=== PATIENT | male | born 1985 | race Caucasian/White ===

== ENCOUNTER 2018-06-17 19:12 | Emergency (ER) | payer BC ==
--- NOTE | 2018-06-17 19:31 | EDM.PDOC ---
ED HPI GENERAL MEDICAL PROBLEM - General Chief Complaint: Back Pain or Injury Stated Complaint: PT HAS BACK PAIN Time Seen by Provider: 06/17/18 19:31 Source of Information: Reports: Patient History Limitations: Reports: No Limitations - History of Present Illness INITIAL COMMENTS - FREE TEXT/NARRATIVE: HISTORY AND PHYSICAL: History of present illness: Patient is a 32-year-old male here with complaint of mid back pain started about 1 week ago. He states it's been progressively getting worse which contact him to come to the ED today. He denies any specific injury. 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 He denies any pain, numbness, tingling to the upper or lower extremities. Denies saddle anesthesia, extremity weakness, loss of bowel or bladder control, fever and chills. He is taking 800 mg ibuprofen without relief of symptoms. Review of systems: As per history of present illness and below otherwise all systems reviewed and negative. Past medical history: As per history of present illness and as reviewed below otherwise noncontributory. Surgical history: As per history of present illness and as reviewed below otherwise noncontributory. Social history: No reported history of drug or alcohol abuse. Family history: As per history of present illness and as reviewed below otherwise noncontributory. Physical exam: General: Patient sitting comfortably in no acute distress and nontoxic appearing HEENT: Atraumatic, normocephalic, pupils reactive, negative for conjunctival pallor or scleral icterus, mucous membranes moist, throat clear, neck supple, nontender, trachea midline. No meningeal signs. Lungs: Clear to auscultation, breath sounds equal bilaterally, chest nontender. Heart: S1S2, regular, negative for clicks, rubs, or overt murmur. Abdomen: Soft, nondistended, nontender. Negative for masses or hepatosplenomegaly. Negative for costovertebral tenderness. Pelvis: Stable nontender. Genitourinary: Deferred. Rectal: Deferred. Spine: No vertebral tenderness or step offs to palpation. Thoracic lumbar paraspinal tenderness to palpation bilaterally. Extremities: Atraumatic, negative for cords or calf pain. Neurovascular unremarkable. Neuro: Awake, alert, oriented. Cranial nerves II through XII unremarkable. Cerebellum unremarkable. Motor and sensory unremarkable throughout. Exam nonfocal. Notes: Diagnostics: Patient declined imaging Therapeutics: 60mg Toradol IM 60mg Norflex IM Prescriptions: Flexeril 10mg Tramadol 50mg Impression: Thoracic back pain Plan: 1. Heat or ice and motrin as instructed. You may take tramadol and flexeril as needed as discussed, do not take while driving as they may make you drowsy 2. Follow up with primary care provider, please call number provided to schedule an appointment 3. Return to ED as needed as discussed Definitive disposition and diagnosis as appropriate pending reevaluation and review of above. 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 Middle back Pain Score (Numeric/FACES): 10 - Related Data Allergies Allergy/AdvReac Type Severity Reaction Status Date / Time cefaclor [From Ceclor] Allergy Cannot Verified 06/17/18 19:22 Remember Penicillins Allergy Cannot Verified 06/17/18 19:22 Remember Home Meds: Home Meds Citalopram [Citalopram HBr] 1 tab PO DAILY 06/17/18 [History] Past Medical History Psychiatric History: Reports: PTSD Social & Family History - Family History Family Medical History: Noncontributory - Tobacco Use Smoking Status *Q: Never Smoker - Recreational Drug Use Recreational Drug Use: No ED ROS GENERAL - Review of Systems Review Of Systems: ROS reveals no pertinent complaints other than HPI. ED EXAM, UPPER BACK/NECK PAIN - Physical Exam Exam: See Below (see dictation) Course - Vital Signs Last Recorded V/S: Last Vital Signs Temp 97.6 F 06/17/18 19:12 Pulse 63 06/17/18 19:12 Resp 16 06/17/18 19:12 BP 121/52 L 06/17/18 19:12 Pulse Ox 96 06/17/18 19:12 - Orders/Labs/Meds Meds: Medications Discontinued Medications Generic Name Dose Route Start Last Admin Trade Name Freq PRN Reason Stop Dose Admin Ketorolac Tromethamine 60 mg 06/17/18 19:37 06/17/18 19:45 Toradol IM 06/17/18 19:38 60 mg ONETIME ONE Administration Orphenadrine Citrate 60 mg 06/17/18 19:37 06/17/18 19:44 Norflex IM 06/17/18 19:38 60 mg NOW STA Administration Departure - Departure Time of Disposition: 19:56 Disposition: Home, Self-Care 01 Condition: Good Clinical Impression: Thoracic back pain - Discharge Information Referrals: PCP,None [Primary Care Provider] - Forms: ED Department Discharge Additional Instructions: The following information is given to patients seen in the emergency department who are being discharged to home. This information is to outline your options for follow-up care. We provide all patients seen in our emergency department with a follow-up referral. The need for follow-up, as well as the timing and circumstances, are variable depending upon the specifics of your emergency department visit. If you don't have a primary care physician on staff, we will provide you with a referral. We always advise you to contact your personal physician following an emergency department visit to inform them of the circumstance of the visit and for follow-up with them and/or the need for any referrals to a consulting specialist. The emergency department will also refer you to a specialist when appropriate. This referral assures that you have the opportunity for follow-up care with a specialist. All of these measure are taken in an effort to provide you with optimal care, which includes your follow-up. Under all circumstances we always encourage you to contact your private physician who remains a resource for coordinating your care. When calling for follow-up care, please make the office aware that this follow-up is from your recent emergency room visit. If for any reason you are refused follow-up, please contact the [facility] Emergency Department at and asked to speak to the emergency department charge nurse. [facility] [address] [place] [id number] [facility] [address] [place] [id number] 1. Heat or ice and motrin as instructed. You may take tramadol and flexeril as needed as discussed, do not take while driving as they may make you drowsy 2. Follow up with primary care provider, please call number provided to schedule an appointment 3. Return to ED as needed as discussed
[2018-06-17] MEDS ORDERED: Ketorolac 60 MG/2 ML SDV IM ONE (19:37)
== END 2018-06-17 20:15 | disposition home or self-care (01) ==
LOC: MW.ED 19:12
DX: M54.6 Pain in thoracic spine (principal); Z88.0 Allergy status to penicillin; Z88.8 Allergy status to other drugs, medicaments and biological substances
CPT/HCPCS: 96372; 99283; J1885; J2360